=== PATIENT | female | born 1990 | race Caucasian/White ===

== ENCOUNTER 2020-06-08 03:05 | Inpatient (IN) | payer OTHER ==
[2020-06-08] MEDS ORDERED: BUTORPHANOL TARTRATE 1 MG/ML VIAL ONE (04:19)
[2020-06-08] MEDS ORDERED: PROMETHAZINE HCL 25 MG/1 ML VIAL ONE (04:20)
[2020-06-08] MEDS ORDERED: BUTORPHANOL TARTRATE 1 MG/ML VIAL IVPUSH ONE (04:25)
[2020-06-08 04:26] LABS: BASO % 0.4 % (0-2.0); EOS % 0.5 % (0-4.5); HEMATOCRIT 31.1 % (32.4-45.2); HEMOGLOBIN 10.1 GM/dL (10.7-15.3); LYMPH % 22.9 % (8-40); MCHC 32.6 g/dl (32.0-36.0); MEAN CELL VOLUME 76.7 fl (80-96); MEAN PLT VOLUME 9.7 fl (7.5-11.1); NEUT % 68.2 % (42.8-82.8); PLATELET COUNT 274 K/MM3 (134-434); RBC 4.06 M/mm3 (3.60-5.2); RDW 17.8 % (11.6-15.6); WHITE BLOOD COUNT 15.9 K/mm3 (4.0-10.0)
[2020-06-08] MEDS ORDERED: DEXTROSE 5%-LACTATED RINGERS 1,000 ML IV SCH (04:30)
[2020-06-08 04:32] LABS: INR 0.94 (0.83-1.09); PROTHROMBIN TIME (PATIENT) 11.4 SEC (9.7-13.0)
[2020-06-08 04:35] LABS: ACTIVATED PTT 24.5 SECONDS (25.2-36.5)
[2020-06-08 04:40] LABS: POTASSIUM 3.9 mmol/L (3.5-5.1)
[2020-06-08 04:41] LABS: BLOOD UREA NITROGEN 7.9 mg/dL (7-18); CALCIUM 9.2 mg/dL (8.5-10.1)
[2020-06-08] MEDS ORDERED: LIDOCAINE HCL 1% PRESERVATIVE FREE - 30ML VIAL ONE (04:43)
[2020-06-08] MEDS ORDERED: OXYTOCIN 20 UNITS in 0.9% NS 40 UNIT/2,000 ML INFUS.BAG IV ONE (04:43)
[2020-06-08 04:45] LABS: CREATININE 0.7 mg/dL (0.55-1.3)
[2020-06-08] MEDS ORDERED: METHYLERGONOVINE MALEATE 0.2 MG/1 ML AMP IM PRN (05:03)
[2020-06-08] MEDS ORDERED: BISACODYL 10 MG SUPP.RECT RC PRN (05:03)
[2020-06-08] MEDS ORDERED: BENZOCAINE 20% 57 GM BOTTLE TP PRN (05:03)
[2020-06-08] MEDS ORDERED: WITCH HAZEL 50% (TUCKS) 40 PAD/JAR PAD TP PRN (05:03)
[2020-06-08] MEDS ORDERED: BENZOCAINE 28 GM HEMORRHOIDAL OINTMENT TP PRN (05:03)
[2020-06-08] MEDS ORDERED: PROMETHAZINE HCL 25 MG/1 ML VIAL IVPUSH ONE (05:03)
[2020-06-08] MEDS ORDERED: OXYTOCIN 20 UNITS in 0.9% NS 20 UNIT/1,000 ML INFUS.BAG IV SCH (05:15)
[2020-06-08 05:39] LABS: HIV INTERPRETATION NEGATIVE (NEGATIVE)
[2020-06-08 06:13] LABS: CORD BASE EXCESS -7.3 mmol/L (0-2); CORD HCO3 20.6 mmHg (20-29); CORD pH 7.225 (7.14-7.44)
[2020-06-08 06:16] LABS: CORD BASE EXCESS -10.1 mmol/L (0-2); CORD HCO3 15.1 mmHg (20-29); CORD PCO2 31.9 mmHg (30-78); CORD pH 7.293 (7.14-7.44)
[2020-06-08 06:30] VITALS: BMI 30.7
[2020-06-08] MEDS: IBUPROFEN 600 MG TABLET (FP) PO PRN ×2 (09:17→22:05)
[2020-06-08] MEDS: FERROUS SO4 325 MG TABLET (FP) PO SCH ×2 (09:17→22:03)
[2020-06-08] MEDS: PRENATAL VITAMINS W/ FOLIC ACID TABLET (FP) PO SCH (09:17)
[2020-06-08] MEDS: ACETAMINOPHEN 325 MG TABLET (FP) PO PRN ×2 (09:18→22:04)
[2020-06-09 06:55] LABS: BASO % 0.4 % (0-2.0); EOS % 1.5 % (0-4.5); HEMATOCRIT 24.1 % (32.4-45.2); HEMOGLOBIN 8.2 GM/dL (10.7-15.3); MCH 25.8 pg (25.7-33.7); MEAN PLT VOLUME 9.4 fl (7.5-11.1); MONO % 6.4 % (3.8-10.2); NEUT % 69.7 % (42.8-82.8); PLATELET COUNT 228 K/MM3 (134-434); RBC 3.17 M/mm3 (3.60-5.2); RDW 17.7 % (11.6-15.6); WHITE BLOOD COUNT 13.9 K/mm3 (4.0-10.0)
[2020-06-09] MEDS: FERROUS SO4 325 MG TABLET (FP) PO SCH (09:16)
[2020-06-09] MEDS: PRENATAL VITAMINS W/ FOLIC ACID TABLET (FP) PO SCH (09:16)
[2020-06-09 09:33] VITALS: BP 107/71; PULSE 83; TEMP 98.2
[2020-06-09] MEDS ORDERED: SENNOSIDES/DOCUSATE COMBO (SENNA PLUS) TABLET (UD) PO PRN (22:00)
== END 2020-06-09 18:15 | disposition home or self-care (01) | DRG 560 ==
LOC: JDEL 03:05 → JLDR 03:40 → J3W 07:59
PROVIDERS: ADMIT Obstetrics & Gynecology; ATTEND Obstetrics & Gynecology
PROC: 10E0XZZ Delivery of Products of Conception, External Approach (ICD-10-PCS; principal; 2020-06-08)
PROC: 0W8NXZZ Division of Female Perineum, External Approach (ICD-10-PCS; 2020-06-08)
DX: O80 Encounter for full-term uncomplicated delivery (principal); Z3A.39 39 weeks gestation of pregnancy; Z37.0 Single live birth
CPT/HCPCS: 36415; 36600; 59409; 80048; 82803; 85025; 85610; 85730; 86780; 86850; 86900; 86901; 87389; C9803; U0003

== ENCOUNTER 2021-04-24 23:07 | Emergency (ER) | payer OTHER ==
[2021-04-24 23:22] VITALS: BP 109/66; PULSE 79; TEMP 98.8; BMI 32.2
[2021-04-25] MEDS ORDERED: LIDOCAINE HCL 1%, 10 MG/ML (50 mL VIAL) INF ONE (00:02)
== END 2021-04-25 01:33 | disposition home or self-care (01) ==
LOC: JER 23:07
DX: S61.512A Laceration without foreign body of left wrist, initial encounter (principal); W26.0XXA Contact with knife, initial encounter
CPT/HCPCS: 99282-25